=== PATIENT | male | born 1960 | race African-American/Black ===

== ENCOUNTER 2023-11-24 15:36 | Emergency (ER) | payer OTHER ==
[~2023-11-24] VITALS: Ht 180.3 cm; Wt 81.8 kg
[2023-11-24] MEDS ORDERED: ASPI-1444 PO (15:55)
[2023-11-24] MEDS ORDERED: AMLO-257 PO (15:55)
[2023-11-24 16:54] LABS: BASOPHILS % (AUTO) 0.6 % (0.0-2.0); EOSINOPHILS % (AUTO) 0.8 % (1.0-6.0); HEMOGLOBIN 13.9 g/dL (13.5-17.5); LYMPHOCYTES # (AUTO) 1.5 K/uL (1.0-4.8); LYMPHOCYTES % (AUTO) 12.5 % (22.0-44.0); MEAN CORPUSCULAR HEMOGLOBIN 27.4 pg (26.0-34.0); MEAN CORPUSCULAR HGB CONC 31.6 G/dL (31.0-37.0); MEAN CORPUSCULAR VOLUME 87 fL (80-100); MONOCYTES % (AUTO) 8.4 % (2.0-9.0); NEUTROPHILS # (AUTO) 9.5 K/uL (1.8-7.7); NEUTROPHILS % (AUTO) 77.7 % (40.0-70.0); PLATELET COUNT (AUTO) 242 K/uL (150-450); RED BLOOD CELL COUNT(AUTO) 5.07 MIL/uL (4.50-5.90); RED CELL DISTRIBUTION WIDTH 15.3 % (11.5-14.5); WHITE BLOOD COUNT (AUTO) 12.2 K/uL (4.5-11.0)
[2023-11-24 17:00] LABS: CALCIUM, TOTAL 9.5 mg/dL (8.8-10.5); CREATININE 1.66 mg/dL (0.60-1.30); POTASSIUM 4.5 mmol/L (3.5-5.1)
[2023-11-24 17:06] LABS: ALBUMIN 3.6 g/dL (3.4-5.0); BILIRUBIN,TOTAL 0.3 mg/dL (0.1-1.0); PROTHROMBIN TIME 10.8 SEC (9.4-11.6); TOTAL PROTEIN, SERUM 7.2 g/dL (6.4-8.2)
[2023-11-24 17:10] LABS: TROPONIN I-HIGH SENSITIVITY 75 ng/L (<76)
[2023-11-24] MEDS: SODIUM CHLORIDE 0.9% 1,000 ML IV ONE (17:28)
[2023-11-24 21:28] LABS: APPEARANCE,URINE CLEAR (CLEAR); BILIRUBIN,URINE NEGATIVE (NEGATIVE); COLOR,URINE COLORLESS (YELLOW); GLUCOSE, URINE (UA) NEGATIVE (NEGATIVE); KETONES,URINE NEGATIVE (NEGATIVE); LEUKOCYTE ESTERASE ,URINE NEGATIVE (NEGATIVE); NITRATE,URINE NEGATIVE (NEGATIVE); OCCULT BLOOD,URINE TRACE (NEGATIVE); PH,URINE 6.5 (5.0-8.0); PROTEIN,URINE TRACE mg/dL (NEGATIVE); SPECIFIC GRAVITIY, URINE 1.015 (1.003-1.030); UROBILINOGEN,URINE <=1.0 mg/dL (<=1.0)
[2023-11-24 21:35] LABS: WBC,URINE 0-2 /HPF (0-5)
[2023-11-24 21:36] LABS: BACTERIA,URINE Rare /HPF (None Seen); SQUAMOUS EPITHELIAL CELL,UR Rare /LPF (None Seen); URINALYSIS COMMENT Many Sperm seen.
[2023-11-24 22:24] LABS: TROPONIN I-HIGH SENSITIVITY 73 ng/L (<76)
[2023-11-24] MEDS: ACETAMINOPHEN 500 MG TABLET PO ONE (22:29)
[2023-11-24] MEDS ORDERED: IOHEXOL 350 MG/ML 100 ML VIAL ONE (22:33)
[2023-11-24] MEDS ORDERED: SODIUM CHLORIDE 0.9% 100 ML ONE (22:33)
[2023-11-24 23:18] VITALS: BP 141/95; PULSE 88; RESP 20; TEMP 98.5
== END 2023-11-25 03:07 | disposition home or self-care (01) ==
LOC: EDBD 15:37 → EMS 15:37
DX: R07.89 Other chest pain (principal); R10.9 Unspecified abdominal pain; I10 Essential (primary) hypertension
CPT/HCPCS: 99285; 71275; 96360; 71045; 80053; 81001; 83880; 84484; 85025; 85610; 85730; 36415; 74176; 93005; Q9967; J7030; J7050